=== PATIENT | male | born 1945 ===

== ENCOUNTER 2017-07-12 07:49 | Outpatient (CLI) | payer OTHER | END 2017-07-12 07:56 | disposition home or self-care (01) | LOC: TOM 07:49 | DX: C18.2 Malignant neoplasm of ascending colon (principal); R59.0 Localized enlarged lymph nodes; K92.2 Gastrointestinal hemorrhage, unspecified | CPT/HCPCS: 71260; 74177; Q9965 ==

== ENCOUNTER 2017-07-15 09:04 | Inpatient (IN) | payer OTHER ==
[~2017-07-15] VITALS: Ht 177.8 cm; Wt 90.7 kg
[2017-07-15] MEDS ORDERED: TOPROL XL25 MG PO (09:37)
[2017-07-15] MEDS ORDERED: ASA81 MG PO (09:38)
[2017-08-24] MEDS ORDERED: INTEGRA F CAPS1 EACH PO (09:03)
[2017-08-24] MEDS ORDERED: IMODIUM A-D2 MG PO (09:03)
[2017-08-24] MEDS ORDERED: VITAMIN B-12500 MC3 SL (09:03)
[2017-08-24] MEDS ORDERED: TAMS0.4C PO (09:03)
== END 2017-08-24 11:05 | disposition home health service (06) | DRG 329 ==
LOC: O/R 07-26 06:51 → SURG 07-26 06:51 → MEDI 07-26 17:28 → SURG 07-26 19:28 → O/R 08-08 19:35 → ICU 08-10 22:27 → MEDI 08-12 10:42 → MEDJ 08-12 10:42
PROVIDERS: Surgery
PROC: 07TC4ZZ Resection of Pelvis Lymphatic, Percutaneous Endoscopic Approach (ICD-10-PCS; 2017-07-26)
PROC: 0DTE4ZZ Resection of Large Intestine, Percutaneous Endoscopic Approach (ICD-10-PCS; principal; 2017-07-26 07:00)
PROC: 4A12X4Z Monitoring of Cardiac Electrical Activity, External Approach (ICD-10-PCS; 2017-07-27)
PROC: 3E0436Z Introduction of Nutritional Substance into Central Vein, Percutaneous Approach (ICD-10-PCS; 2017-07-29)
PROC: BW21Y0Z Computerized Tomography (CT Scan) of Abdomen and Pelvis using Other Contrast, Unenhanced and Enhanced (ICD-10-PCS; 2017-08-01)
PROC: 02HV33Z Insertion of Infusion Device into Superior Vena Cava, Percutaneous Approach (ICD-10-PCS; 2017-08-03)
PROC: BW21ZZZ Computerized Tomography (CT Scan) of Abdomen and Pelvis (ICD-10-PCS; 2017-08-06)
PROC: B246ZZZ Ultrasonography of Right and Left Heart (ICD-10-PCS; 2017-08-06)
PROC: 0DN80ZZ Release Small Intestine, Open Approach (ICD-10-PCS; 2017-08-08)
PROC: 0WJG4ZZ Inspection of Peritoneal Cavity, Percutaneous Endoscopic Approach (ICD-10-PCS; 2017-08-08)
PROC: 0D1B0Z4 Bypass Ileum to Cutaneous, Open Approach (ICD-10-PCS; 2017-08-08)
PROC: 0W9J00Z Drainage of Pelvic Cavity with Drainage Device, Open Approach (ICD-10-PCS; 2017-08-08)
PROC: 3E1M38Z Irrigation of Peritoneal Cavity using Irrigating Substance, Percutaneous Approach (ICD-10-PCS; 2017-08-08)
PROC: 4A033R1 Measurement of Arterial Saturation, Peripheral, Percutaneous Approach (ICD-10-PCS; 2017-08-08)
PROC: 5A1945Z Respiratory Ventilation, 24-96 Consecutive Hours (ICD-10-PCS; 2017-08-08)
PROC: 0BH17EZ Insertion of Endotracheal Airway into Trachea, Via Natural or Artificial Opening (ICD-10-PCS; 2017-08-08)
PROC: 4A12X4Z Monitoring of Cardiac Electrical Activity, External Approach (ICD-10-PCS; 2017-08-12)
PROC: 8E0ZXY6 Isolation (ICD-10-PCS; 2017-08-12)
PROC: BW21Y0Z Computerized Tomography (CT Scan) of Abdomen and Pelvis using Other Contrast, Unenhanced and Enhanced (ICD-10-PCS; 2017-08-17)
PROC: BW21Y0Z Computerized Tomography (CT Scan) of Abdomen and Pelvis using Other Contrast, Unenhanced and Enhanced (ICD-10-PCS; 2017-08-17)
PROC: B246ZZZ Ultrasonography of Right and Left Heart (ICD-10-PCS; 2017-08-19)
DX: C18.2 Malignant neoplasm of ascending colon (principal); K65.1 Peritoneal abscess; A41.9 Sepsis, unspecified organism; J95.821 Acute postprocedural respiratory failure; K91.89 Other postprocedural complications and disorders of digestive system; K56.51 Intestinal adhesions [bands], with partial obstruction; T81.4XXA Infection following a procedure, initial encounter; B37.0 Candidal stomatitis; B37.49 Other urogenital candidiasis; R59.0 Localized enlarged lymph nodes; I11.9 Hypertensive heart disease without heart failure; D64.89 Other specified anemias; I35.0 Nonrheumatic aortic (valve) stenosis; Z95.2 Presence of prosthetic heart valve; N40.1 Benign prostatic hyperplasia with lower urinary tract symptoms; N99.89 Other postprocedural complications and disorders of genitourinary system

== ENCOUNTER 2017-09-10 08:03 | Inpatient (IN) | payer OTHER ==
[~2017-09-10] VITALS: Ht 177.8 cm; Wt 82.6 kg
[~2017-09-10 08:03] MED LIST: ASA81 MG PO; IMODIUM A-D2 MG PO; INTEGRA F CAPS1 EACH PO; TAMS0.4C PO; TOPROL XL25 MG PO; VITAMIN B-12500 MC3 SL
[2017-09-17] MEDS ORDERED: INTEGRA F CAPS1 EACH PO (16:58)
[2017-09-17] MEDS ORDERED: DOXY 100100 MG PO (16:58)
[2017-09-17] MEDS ORDERED: ULTRACET PO (16:58)
[2017-09-17] MEDS ORDERED: MUCINEX600 MG PO (16:58)
[2017-09-17] MEDS ORDERED: TAMSULOSIN HCL0.4 MG PO (16:58)
[2017-09-17] MEDS ORDERED: TOPROL XL25 M1 PO (16:58)
== END 2017-09-17 17:46 | disposition home or self-care (01) | DRG 683 ==
LOC: ER 08:03 → SURH 18:16
PROVIDERS: Urology
PROC: BW21ZZZ Computerized Tomography (CT Scan) of Abdomen and Pelvis (ICD-10-PCS; 2017-09-10)
PROC: BT1DZZZ Fluoroscopy of Right Kidney, Ureter and Bladder (ICD-10-PCS; 2017-09-12)
PROC: 0T768DZ Dilation of Right Ureter with Intraluminal Device, Via Natural or Artificial Opening Endoscopic (ICD-10-PCS; principal; 2017-09-12 05:45)
PROC: 0TF68ZZ Fragmentation in Right Ureter, Via Natural or Artificial Opening Endoscopic (ICD-10-PCS; 2017-09-16)
PROC: 0T768DZ Dilation of Right Ureter with Intraluminal Device, Via Natural or Artificial Opening Endoscopic (ICD-10-PCS; 2017-09-16)
DX: N17.8 Other acute kidney failure (principal); N39.0 Urinary tract infection, site not specified; N13.2 Hydronephrosis with renal and ureteral calculous obstruction; I11.9 Hypertensive heart disease without heart failure; Z93.2 Ileostomy status; I35.0 Nonrheumatic aortic (valve) stenosis; N40.1 Benign prostatic hyperplasia with lower urinary tract symptoms; B96.1 Klebsiella pneumoniae [K. pneumoniae] as the cause of diseases classified elsewhere; D64.89 Other specified anemias

== ENCOUNTER 2017-12-21 07:56 | Outpatient (CLI) | payer OTHER ==
[~2017-12-21 07:56] MED LIST changes: +DOXY 100100 MG PO; +MUCINEX600 MG PO; +TAMSULOSIN HCL0.4 MG PO; +TOPROL XL25 M1 PO; +ULTRACET PO
== END 2017-12-21 08:03 | disposition home or self-care (01) ==
LOC: TOM 07:56
DX: C18.2 Malignant neoplasm of ascending colon (principal); R59.0 Localized enlarged lymph nodes; K92.2 Gastrointestinal hemorrhage, unspecified; Z93.2 Ileostomy status
CPT/HCPCS: 71260; 74177; Q9965

== ENCOUNTER 2017-12-28 16:21 | Inpatient (IN) | payer OTHER ==
[~2017-12-28] VITALS: Ht 172.7 cm; Wt 83.9 kg
[2018-01-18] MEDS ORDERED: TYLENOL ARTHRI650 MG PO (08:29)
[2018-01-18] MEDS ORDERED: OMEPRAZOLE20 MG PO (08:29)
[2018-01-18] MEDS ORDERED: QUESTRAN PACKET4 GM PO (08:29)
== END 2018-01-18 09:35 | disposition home or self-care (01) | DRG 330 ==
LOC: SURG 01-10 05:40 → O/R 01-10 05:40 → SURH 01-10 08:30 → SURG 01-10 13:41 → SURH 01-10 16:15 → SURG 01-18 09:35
PROVIDERS: Surgery
PROC: 0WQF0ZZ Repair Abdominal Wall, Open Approach (ICD-10-PCS; 2018-01-10)
PROC: 0DNE0ZZ Release Large Intestine, Open Approach (ICD-10-PCS; 2018-01-10)
PROC: 0YQA0ZZ Repair Bilateral Inguinal Region, Open Approach (ICD-10-PCS; 2018-01-10)
PROC: 3E0F7GC Introduction of Other Therapeutic Substance into Respiratory Tract, Via Natural or Artificial Opening (ICD-10-PCS; 2018-01-10)
PROC: 0DQB0ZZ Repair Ileum, Open Approach (ICD-10-PCS; principal; 2018-01-10 16:15)
PROC: 05H433Z Insertion of Infusion Device into Left Innominate Vein, Percutaneous Approach (ICD-10-PCS; 2018-01-11)
PROC: 3E0436Z Introduction of Nutritional Substance into Central Vein, Percutaneous Approach (ICD-10-PCS; 2018-01-13)
DX: K43.5 Parastomal hernia without obstruction or gangrene (principal); J95.89 Other postprocedural complications and disorders of respiratory system, not elsewhere classified; J98.11 Atelectasis; T81.4XXA Infection following a procedure, initial encounter; L03.311 Cellulitis of abdominal wall; K56.0 Paralytic ileus; K91.89 Other postprocedural complications and disorders of digestive system; K43.2 Incisional hernia without obstruction or gangrene; Z43.2 Encounter for attention to ileostomy; Z85.038 Personal history of other malignant neoplasm of large intestine; K66.0 Peritoneal adhesions (postprocedural) (postinfection); I11.9 Hypertensive heart disease without heart failure; D64.89 Other specified anemias; I35.0 Nonrheumatic aortic (valve) stenosis; Z95.2 Presence of prosthetic heart valve

== ENCOUNTER 2018-06-26 07:06 | Day surgery (SDC) | payer OTHER ==
[~2018-06-26 07:06] MED LIST changes: +OMEPRAZOLE20 MG PO; +QUESTRAN PACKET4 GM PO; +TYLENOL ARTHRI650 MG PO
== END 2018-06-26 12:10 | disposition home or self-care (01) ==
LOC: AMB-ENDOS 07:06
DX: C18.2 Malignant neoplasm of ascending colon (principal); Z93.2 Ileostomy status

== ENCOUNTER 2019-03-16 08:16 | Outpatient (CLI) | payer OTHER | END 2019-03-16 11:50 | disposition home or self-care (01) | LOC: TOM 08:16 | DX: C18.2 Malignant neoplasm of ascending colon (principal); R59.0 Localized enlarged lymph nodes; K92.2 Gastrointestinal hemorrhage, unspecified; Z93.2 Ileostomy status; K43.5 Parastomal hernia without obstruction or gangrene | CPT/HCPCS: 71260; 74177; Q9965 ==

== ENCOUNTER 2020-04-01 07:31 | Outpatient (CLI) | payer OTHER | END 2020-04-01 07:45 | disposition home or self-care (01) | LOC: TOM 07:31 | PROVIDERS: ATTEND Surgery | DX: K76.0 Fatty (change of) liver, not elsewhere classified (principal); C18.2 Malignant neoplasm of ascending colon; R59.0 Localized enlarged lymph nodes; K92.2 Gastrointestinal hemorrhage, unspecified; Z93.2 Ileostomy status; K43.5 Parastomal hernia without obstruction or gangrene | CPT/HCPCS: 71260; 74177; Q9965 ==

== ENCOUNTER 2022-07-02 11:37 | Outpatient (CLI) | payer OTHER | END 2022-07-02 11:38 | disposition home or self-care (01) | LOC: LAB 11:37 | DX: C18.2 Malignant neoplasm of ascending colon (principal) ==

== ENCOUNTER → 2022-07-06 | Outpatient (CLI) | payer OTHER | END | disposition home or self-care (01) | LOC: TOM 08:49 | PROVIDERS: ATTEND Surgery | DX: C18.2 Malignant neoplasm of ascending colon (principal); R59.0 Localized enlarged lymph nodes; K92.2 Gastrointestinal hemorrhage, unspecified; Z93.2 Ileostomy status; K43.5 Parastomal hernia without obstruction or gangrene | CPT/HCPCS: 71260; 74177; Q9965 ==